=== PATIENT | female | born 1985 | race African-American/Black ===

== ENCOUNTER 2025-03-15 12:37 | Emergency (ER) | payer OTHER ==
[~2025-03-15] VITALS: Ht 165.1 cm; Wt 114.0 kg
[2025-03-15 12:47] VITALS: O2SAT 100
[2025-03-15] MEDS ORDERED: ACET-2708 MT (16:01)
[2025-03-15] MEDS ORDERED: LIDO-53 TP (16:01)
[2025-03-15] MEDS: KETOROLAC 30MG/ML VIAL IM ONE (16:13)
[2025-03-15] MEDS: LIDOCAINE 5% PATCH TOP SCH (16:14)
[2025-03-15 16:20] VITALS: BP 126/60; PULSE 74; RESP 16; TEMP 36.8; O2SAT 100
== END 2025-03-15 16:22 | disposition home or self-care (01) ==
LOC: ER 12:37
DX: M54.50 Low back pain, unspecified (principal); I10 Essential (primary) hypertension; Z98.890 Other specified postprocedural states; V49.9XXA Car occupant (driver) (passenger) injured in unspecified traffic accident, initial encounter; Y93.89 Activity, other specified; Y92.89 Other specified places as the place of occurrence of the external cause; Y99.8 Other external cause status
CPT/HCPCS: 99285; 72131; 81025; 96372; J1885